=== PATIENT | male | born 1990 | race Caucasian/White ===

== ENCOUNTER 2018-04-08 22:22 | Emergency (ER) | payer MEDICAID ==
[~2018-04-08] VITALS: Ht 162.6 cm; Wt 81.8 kg
[2018-04-09 01:34] LABS: APPEARANCE,URINE CLEAR (CLEAR); GLUCOSE, URINE (UA) NEGATIVE (NEGATIVE); KETONES,URINE NEGATIVE (NEGATIVE); LEUKOCYTE ESTERASE ,URINE NEGATIVE (NEGATIVE); NITRATE,URINE NEGATIVE (NEGATIVE); OCCULT BLOOD,URINE NEGATIVE (NEGATIVE); PH,URINE 5.5 (5.0-8.0); PROTEIN,URINE NEGATIVE (NEGATIVE); UROBILINOGEN,URINE 0.2 mg/dL (<=1.0)
[2018-04-09 01:35] LABS: BILIRUBIN,URINE PRELIM. POSITIVE (NEGATIVE)
[2018-04-09 01:45] LABS: BACTERIA,URINE Rare /HPF (None Seen); MUCUS,URINE Moderate LPF (None Seen); RBC,URINE None Seen /HPF (0-2); SQUAMOUS EPITHELIAL CELL,UR Rare /LPF (None Seen)
[2018-04-09] MEDS ORDERED: PHENAZOPYRIDINE HCL 100 MG TABLET PO ONE (02:30)
[2018-04-09] MEDS ORDERED: SULFAMETHOX/TRIMETH DS 800-160 MG/TABLET PO ONE (02:30)
[2018-04-09 02:44] VITALS: BP 140/80
== END 2018-04-09 02:54 | disposition home or self-care (01) ==
LOC: EMS 22:24
DX: N39.0 Urinary tract infection, site not specified (principal); N50.812 Left testicular pain
CPT/HCPCS: 87086